=== PATIENT | female | born 1970 | race Caucasian/White ===

== ENCOUNTER 2021-10-11 16:54 | Outpatient (REF) | payer OTHER, SELFPAY ==
[2021-10-13 20:59] LABS: COVID-19 RT-PCR UVMMC Result Positive (Negative)
== END 2021-10-11 16:55 | disposition home or self-care (01) ==
LOC: LBN 16:54
PROVIDERS: PCP Student in an Organized Health Care Education/Training Program; Visit Provider Student in an Organized Health Care Education/Training Program
DX: R09.81 Nasal congestion (principal); Z20.822 Contact with and (suspected) exposure to COVID-19
CPT/HCPCS: U0003

== ENCOUNTER 2021-11-05 09:23 | Outpatient (REF) | payer OTHER, SELFPAY ==
--- NOTE | 2021-11-05 09:15 | PAPFT_PTH ---
PATIENT: Joi Nguyen LOC: [facility] U#:[id number] AGE/SX: 51/F ROOM: RE11/05/[address]: CRYSTAL Campuzano : 1970 BED: DIS: 11/05/2021 SPEC #: [id number] RECD: 11/05/21 12:57 STATUS: SHARON REJohn #: [id number] PATRICIA: 11/05/21 09:[address]: Yissel Burgos DEPT: [facility] Cytology RECD BY: Anh García ENTERED: 11/05/21 12:57 SP TYPE: PAPFT OTHR DR: Lili Garber, Tissues: 1 - CX/ENDOCX FOR PAP SMEARS Procedures: PAP THIN PREP/[facility] Screening HPV DNA PROBE Comments: [id number]
[2021-11-06 15:20] LABS: Chlamydia Result Negative (Negative); GC Result Negative (Negative)
== END 2021-11-05 09:24 | disposition home or self-care (01) ==
LOC: LBN 09:23
PROVIDERS: PCP Student in an Organized Health Care Education/Training Program; Visit Provider Nurse Practitioner Family
DX: Z11.3 Encounter for screening for infections with a predominantly sexual mode of transmission (principal); Z12.4 Encounter for screening for malignant neoplasm of cervix; Z11.51 Encounter for screening for human papillomavirus (HPV)
CPT/HCPCS: 87491; 87591; 88142; 87624

== ENCOUNTER 2021-11-05 17:12 | Outpatient (REF) | payer OTHER, SELFPAY | END 2021-11-05 17:13 | disposition home or self-care (01) | LOC: LBN 17:12 | PROVIDERS: PCP Student in an Organized Health Care Education/Training Program; Visit Provider Nurse Practitioner Family ==

== ENCOUNTER 2021-12-28 01:07 | Outpatient (CLI) | payer OTHER, SELFPAY ==
--- NOTE | 2021-12-28 08:29 | DI.MAMMO_ITS ---
Exam(s) MAMMO SCREENING EXAM: MAMMO SCREENING CLINICAL HISTORY: screening TECHNIQUE: Bilateral full field digital CC and MLO mammographic images were obtained with 3D tomosyn thesis and utilizing computer aided detection (CAD). COMPARISON: Available for comparison. FINDINGS: Masses/Architectural Distortion: None seen. Microcalcifications: No suspicious pleomorphic-type are seen. Skin Thickening/Nipple Retraction: None. IMPRESSION: 1. No significant interval change with no specific features of malignancy noted. 2. Unless there is more urgent need, screening mammography is recommended, as per [employer] guidelines. BI-RADS Category 1 - Negative Breast Density - Category C - Heterogeneously dense Breast density category C or D implies that the patient has dense breast tissue. Dense breast tissue is very common and is not abnormal but dense breast tissue can make it harder to find cancer on a ma mmogram. Also, dense breast tissue may increase their breast cancer risk. This information about the result of the mammogram report was provided to the patient to raise their awareness. Use this report when you speak with the patient about their risks for breast cancer, which includes their family hist ory. At that time, you may recommend for more screening tests (Ultrasound or MRI) as they might be us eful based on their risk. A negative radiographic report should not delay biopsy if a dominant or clinically suspicious mass is present. Up to ten percent of cancers are not identified on mammography. A negative report may reinforce clinical impression. Adenosis and dense breasts may obscure an underlying neoplasm. False positive reports average 6 to 10%. Patient will receive a letter notifying them of these results.
== END 2021-12-28 01:27 ==
PROVIDERS: PCP Student in an Organized Health Care Education/Training Program; Visit Provider Student in an Organized Health Care Education/Training Program
DX: Z12.31 Encounter for screening mammogram for malignant neoplasm of breast (principal)
CPT/HCPCS: 77063; 77067

== ENCOUNTER 2022-02-22 01:30 | Outpatient (CLI) | payer OTHER, SELFPAY ==
[2022-02-22 07:29] LABS: HCT 41.7 % (36.0-46.0); HGB 13.9 g/dL (11.2-15.7); MCH 31.2 pg (27.0-33.0); MCHC 33.3 % (32.0-36.0); MCV 94 fL (80-95); Platelet Count 204 10^3/uL (130-400); RBC 4.45 10^6/uL (3.93-5.22); RDW 12.1 % (11.7-14.6); RDW-SD 41.8 fL; WBC 4.63 10^3/uL (4.4-10.8)
[2022-02-22 09:08] LABS: ALT 32 U/L (14-59); AST 22 U/L (15-37); Albumin 3.8 g/dL (3.4-5.0); Alkaline Phosphatase 53 U/L (46-116); Anion Gap 5.1 mmol/L (3-11); BUN 14 mg/dL (7-18); Bilirubin, Total 0.4 mg/dL (0.2-1.0); CO2 30.9 mmol/L (21.0-32.0); CREATININE 0.9 mg/dL (0.55-1.02); Calcium 8.8 mg/dL (8.5-10.1); Calculated LDL 127 mg/dL (<100); Chloride 104 mmol/L (98-107); Cholesterol 223 mg/dL (<200); Glucose 94 mg/dL (74-106); HDL Cholesterol 88 mg/dL (40-60); Potassium 4.2 mmol/L (3.5-5.1); Sodium 140 mmol/L (136-145); Total Protein 7.1 g/dL (6.4-8.2); Triglyceride 43 mg/dL (<150)
[2022-02-23 09:51] LABS: HIV-1/2 Ag & Ab Screen Negative (Negative)
[2022-02-24 14:53] LABS: Syphilis IgG w/Reflex Nonreactive (Nonreactive)
[2022-02-25 10:06] LABS: Hepatitis B Surface Ag Negative (Negative)
[2022-02-25 10:53] LABS: Hepatitis C Ab w Rflx HCV PCR Negative (Negative)
== END 2022-02-22 01:31 | disposition home or self-care (01) ==
LOC: LBO 01:30
PROVIDERS: Nurse Practitioner Family; PCP Student in an Organized Health Care Education/Training Program; Visit Provider Student in an Organized Health Care Education/Training Program
DX: E86.0 Dehydration (principal); Z86.2 Personal history of diseases of the blood and blood-forming organs and certain disorders involving the immune mechanism; Z86.39 Personal history of other endocrine, nutritional and metabolic disease; Z11.3 Encounter for screening for infections with a predominantly sexual mode of transmission; Z11.4 Encounter for screening for human immunodeficiency virus [HIV]; Z11.59 Encounter for screening for other viral diseases; Z13.220 Encounter for screening for lipoid disorders
CPT/HCPCS: 36415; 80053; 80061; 85027; 86803; 87340; 87389; 84443; 86780

== ENCOUNTER 2023-01-31 00:32 | Outpatient (CLI) | payer OTHER, SELFPAY ==
--- NOTE | 2023-01-31 12:30 | DI.MAMMO_ITS ---
Exam(s) MAMMO SCREENING EXAM: MAMMO SCREENING CLINICAL HISTORY: screening TECHNIQUE: Mammograms were interpreted according to the usual protocol including computer analysis w [employer] CAD system, tomosynthesis and C-view imaging. COMPARISON: 2015 through 2021 FINDINGS: The breasts are composed of scattered fibroglandular densities, Breast Density category B. No suspicious masses or suspicious microcalcifications are seen. No skin thickening or abnormal axillary lymph nodes are seen. There has been no significant change from prior exams. IMPRESSION: BI-RADS Category 1, Negative mammogram Yearly screening mammography is recommended. Breast Density - Category B, scattered fibroglandular densities. A negative radiographic report should not delay biopsy if a dominant or clinically suspicious mass is present. Up to ten percent of cancers are not identified on mammography. A negative report may reinforce clinical impression. Adenosis and dense breasts may obscure an underlying neoplasm. False positive reports average 6 to 10%. Patient will receive a letter notifying them of these results.
== END 2023-01-31 00:52 ==
LOC: DI 00:33
PROVIDERS: PCP Student in an Organized Health Care Education/Training Program; Visit Provider Nurse Practitioner Women's Health
DX: Z12.31 Encounter for screening mammogram for malignant neoplasm of breast (principal)
CPT/HCPCS: 77063; 77067

== ENCOUNTER 2023-11-25 04:35 | Outpatient (CLI) | payer BC, SELFPAY ==
[2023-11-25 08:36] LABS: HCT 42.3 % (36.0-46.0); MCH 30.4 pg (27.0-33.0); MCHC 33.1 % (32.0-36.0); MCV 92 fL (80-95); Platelet Count 235 10^3/uL (130-400); WBC 5.03 10^3/uL (4.4-10.8)
[2023-11-25 09:34] LABS: ALT 25 U/L (14-59); AST 18 U/L (15-37); Albumin 3.5 g/dL (3.4-5.0); Alkaline Phosphatase 51 U/L (46-116); Anion Gap 6.1 mmol/L (3-11); BUN 14 mg/dL (7-18); Bilirubin, Total 0.5 mg/dL (0.2-1.0); CO2 28.9 mmol/L (21.0-32.0); CREATININE 0.9 mg/dL (0.55-1.02); Calculated LDL 105 mg/dL (<100); Chloride 108 mmol/L (98-107); Cholesterol 190 mg/dL (<200); Glucose 95 mg/dL (74-106); HDL Cholesterol 76 mg/dL (40-60); Potassium 4.4 mmol/L (3.5-5.1); Sodium 143 mmol/L (136-145); TSH (W/Ref FT4) 1.23 uIU/mL (0.36-3.74); Total Protein 7.2 g/dL (6.4-8.2); Triglyceride 46 mg/dL (<150)
[2023-11-25 10:33] LABS: Vitamin D 25 Total 46.5 ng/mL (30-100)
== END 2023-11-25 04:36 | disposition home or self-care (01) ==
LOC: LBO 04:36
PROVIDERS: PCP Student in an Organized Health Care Education/Training Program; Referring Provider Student in an Organized Health Care Education/Training Program; Visit Provider Student in an Organized Health Care Education/Training Program
DX: Z86.39 Personal history of other endocrine, nutritional and metabolic disease (principal); Z91.89 Other specified personal risk factors, not elsewhere classified; K58.9 Irritable bowel syndrome, unspecified; Z80.0 Family history of malignant neoplasm of digestive organs
CPT/HCPCS: 36415; 80053; 80061; 82306; 85027; 83735; 84443

== ENCOUNTER → 2024-03-04 00:01 | Outpatient (CLI) | payer BC, SELFPAY ==
--- NOTE | 2024-03-04 08:58 | DI.DEXA_ITS ---
Exam(s) XR DEXA BONE DENSITY W/WO VICKY EXAM: XR DEXA BONE DENSITY W/WO VICKY CLINICAL HISTORY: Z78.0 MENOPAUSAL Z82.62 FAM HX OSTEOPOROSIS L98.9 DISORDER TECHNIQUE: COMPARISON: No exams were available for comparison FINDINGS: Lateral Spine Image: Unremarkable. No compression deformities identified. Left hip: Total T-Score: -1.5 Total Z-Score: -1.0 T- and Z-scores: Findings are consistent with osteopenia. There is no evidence of osteoporosis. Lumbar Spine: Total T-Score: -2.4 Total Z-Score: -1.5 T- and Z-scores: Findings are consistent with osteopenia. There is osteoporosis in the L3 and L4 amrik tebral bodies with T-scores of -2.5 at each level. IMPRESSION: Osteoporosis is seen in the L3 and L4 vertebral bodies.
--- NOTE | 2024-03-04 15:24 | DI.MAMMO_ITS ---
Exam(s) MAMMO SCREENING EXAM: MAMMO SCREENING CLINICAL HISTORY: screening Z12.39. TECHNIQUE: Bilateral full field digital CC and MLO mammographic images were obtained with 3D tomosyn thesis and utilizing computer aided detection (CAD). COMPARISON: Prior mammograms were reviewed. FINDINGS: There has been no significant change in the appearance and distribution of the fibroglandular tissue. Small benign-appearing nodule in the right breast is unchanged and has appearance of benign intramamm tristen lymph node. There are no new spiculated masses nor malignant appearing microcalcification groups. There is no significant architectural distortion nor skin thickening-retraction. IMPRESSION: No radiographic evidence of malignancy. Stable benign-appearing findings BI-RADS Category 2 - Benign Findings Breast Density - Category B - Scattered areas of fibroglandular density Breast density Category C or D implies that the patient has dense breast tissue. Dense breast tissue can make it harder to find cancer on a mammogram. Dense breast tissue is also associated with an incr eased risk of breast cancer. This information about the result of the mammogram report was provided to the patient to raise their awareness. Use this report when you speak with the patient about their risks for breast cancer, which includes their family history. At that time, you may recommend additional screening tests (Ultrasoun d or MRI) as these tests may add significant information. A negative radiographic report should not delay biopsy if a dominant or clinically suspicious mass is present. Up to ten percent of cancers are not identified on mammography. A negative report may reinforce clinical impression. Adenosis and dense breasts may obscure an underlying neoplasm. False positive reports average 6 to 10%. Patient will receive a letter notifying them of these results.
== END ==
PROVIDERS: PCP Student in an Organized Health Care Education/Training Program; Visit Provider Student in an Organized Health Care Education/Training Program
DX: Z12.31 Encounter for screening mammogram for malignant neoplasm of breast (principal); Z13.820 Encounter for screening for osteoporosis; Z78.0 Asymptomatic menopausal state; M81.0 Age-related osteoporosis without current pathological fracture
CPT/HCPCS: 77063; 77067; 77080

== ENCOUNTER 2024-04-16 09:06 | Day surgery (SDC) | payer BC, SELFPAY ==
--- NOTE | 2024-04-15 21:23 | W.COLOREPORT ---
Date of service: 04/16/24 Time of Service: 10:29 Colonoscopy Report Date of procedure: 04/16/24 Pre-op diagnosis general: IBS-D/2nd famlly member CRC/polyps Post-op diagnosis procedure note: other (Colon polyp) Surgeon: Breanne Castanon Anesthesia Type: General:No Airway Estimated blood loss (mL): 1 Pathology: other Complications: None Disposition: same day Prep: Miralax/Dulcolax Retraction Time: 15 Procedure Description: After informed consent was obtained, explaining risks of the procedure, including but not limits to: bleeding, infections, complications of anesthesia, perforations (which may require antibiotics and /or surgery and stay in the hospital), and abdominal pain/cramping. The patient was taken to the procedure room and placed in a left decubitous position. Monitors were applied and a time out was done. The patients name, date of , procedure, allergies to medications and metal in their body was reviewed. The patient was then sedated. Once sedated and comfortable a rectal exam was done. External exam was normal. Internal exam revealed a normal sphincter tone and no palpable masses. The previously lubricated Olympus scope was then introduced (see RN notes for scope number) and retrofelexed. Grade 2 x 1 column, internal hemorrhoids were identified. The scope was then advanced to the cecum without difficulty. The TI and appendiceal orifice were identified. The scope was then slowly retracted over 15 minutes back into the rectum. Polyps: A flat, 1cm polyp was found at 80cm. This was removed with a cold biting forceps. All of the specimen was retrieved. This will be sent to pathology. There is no bleeding noted from the polypectomy site. . Diverticula: None. The mucosa is pink and healthy w/ a normal vascular pattern. The scope was removed, and the patient was woken up and taken back to Same day surgery in stable condition. The patient tolerated the procedure well and there were no immediate complications. Follow up: The patient should follow up in 3-5 years, path pending, unless they develop changes in bowel habits or other new gastrointestinal complaints. [place] Bowel Prep [place] Bowel Prep Right Colon: 3 Left Colon: 3 Transverse Colon: 3 Total Score: 9
--- NOTE | 2024-04-15 21:24 | PDOC.DSDIS_ITS ---
Date of service: 04/16/24 Time of Service: 10:32 Discharge Plan Disposition Patient Disposition: Home Discharge Details Reason For Visit: colon cancer screening Attending Provider: Breanne Castanon Primary Care Provider: Lili Garber Home Meds and New Rx's Prescriptions: Continued multivitamin Tablet 1 tab PO DAILY Qty: 90 1RF escitalopram oxalate [Lexapro] 10 mg tablet 10 mg PO DAILY Qty: 90 3RF sumatriptan succinate 25 mg tablet See Rx Instructions PO .COMPLEX Qty: 20 1RF Rx Instructions: take 1 tab at onset of headache; if no relief may repeat 1 tab after at least 2 hrs; max = 4 tabs/24 hr PO norethindrone (contraceptive) [Deblitane] 0.35 mg tablet See Rx Instructions .ROUTE .COMPLEX Qty: 84 0RF Dose Instruction: TAKE ONE TABLET BY MOUTH EVERY DAY Rx Instructions: TAKE ONE TABLET BY MOUTH EVERY DAY Discontinued bisacodyl 5 mg tablet,delayed release (DR/EC) 5 mg PO ONCE Qty: 4 0RF Rx Instructions: Per Colonoscopy bowel prep instructions polyethylene glycol 3350 17 gram/dose powder 238 g PO ONCE Qty: 238 0RF Rx Instructions: For Colonoscopy bowel prep, as directed by office Discharge Instructions Additional Instructions: DSU Colonoscopy Post- Op Instructions Instructions for Everyone who is given Anesthesia: For your safety, please do the following for the next twenty-four (24) hours: *Do Not operate a motor vehicle (car, truck, motorcycle, etc.) *Do Not drink alcoholic beverages or use any recreational drugs for the first 24 hours or while taking pain medications. The medications in your body may have a reaction that can be dangerous. *Do Not make any important decisions or sign any important papers. Findings: X 1 colon polyp. Otherwise normal Follow up: My office will send you a letter in 2 to 3 weeks time with the results of the pathology and when we want you to repeat the colonoscopy, most likely 3 to 5 years time. 1. No lifting over 20 pounds or strenuous activity for the first 24 hours after your procedure. After 24 hours there are no restrictions on your activity but you may feel fatigued for a few days. 2. After you arrive home you may have a light meal and return to your normal diet as you can tolerate it without feeling sick to your stomach. 3. You may have a bloated, gaseous feeling in your belly (abdomen) after a colonoscopy. Passing gas and belching will help. Walking or lying down on your left side with your knees flexed may relieve the discomfort. Call the office at [phone] (Office) or [phone] (Hospital) right away if you notice any of the following: a.Vomiting of blood or ?coffee ground stools?. b.Rectal bleeding 1Tbsp, blood clots or continuous bleeding. c.Severe belly (abdominal) pain. d.A hard distended belly (abdomen) and an inability to pass gas. 4. Please don?t expect to have a normal BM (bowel movement) for 2-3 days after your procedure. 5. If there are questions regarding the findings of your procedure, please contact your doctor 6. If you are unable to contact your doctor with a problem, contact the hospital at [phone]. 7. Continue all your regular medications unless directed otherwise. I understand the above instructions and have no questions. Signature of Patient or Adult Escort Name of Responsible Adult Escort Signature of Nurse Date/Time Stand Alone Forms: Anesthesia Discharge Inst., Olga Swanson (DSU) Activity:: see above Diet:: see above Discharge Orders Discharge Orders: Discharge Order (Routine); Ordered 04/16/24 Ordered By: Breanne Castanon DS: Diagnosis Discharge Diagnosis (1) Anxiety associated with depression: Status: Acute (2) Hx of Roland thyroiditis: Status: Acute (3) At risk for osteoporosis: Status: Acute (4) Abnormal weight gain: Status: Acute (5) IBS (irritable bowel syndrome): Status: Chronic (6) Persistent headaches: Status: Acute (7) Family hx of colon cancer: Asessment and Plan: The patient is seen and examined after their colonoscopy.? The patient has been able to pass gas.? They are not having abdominal pain.? They have been able to tolerate liquids and a snack.? They do not have any nausea or vomiting.? They are not having any chest pain or shortness of breath.??? They are not having any rectal bleeding. Their vital signs have been stable-see nursing notes. We discussed findings during their colonoscopy, and any biopsies that were done/polyps that were removed. The patient will be sent a letter with any biopsy results, and when to repeat the colonoscopy.-see discharge instructions. Patient was given explicit instructions to follow-up regarding colonoscopy-refer to discharge instructions.? We reviewed resumption of medications. Patient verbalized understanding and discharged in stable and satisfactory condition- See nursing notes. (8) Colon polyp: Status: Acute
--- NOTE | 2024-04-16 05:58 | W.ANESPRE ---
General Info Date of Service Date Performed: 04/16/24 Height: 5 ft 5.5 in Weight: 58.967 kg Body Mass Index (BMI): 21.3 Surgical Procedure: Operation Date: 04/16/24 09:50 Proposed Procedure Side Surgeon samuel Castanon, DO Meds Allergies and Home Medications Allergies Allergy/AdvReac Type Severity Reaction Status Date / Time ciprofloxacin (From Cipro) Allergy Severe facial Verified 04/16/24 09:14 swelling seasonal allergies Allergy Intermediate runny Uncoded 04/16/24 09:14 nose, itchy eyes, sneezing Home Medication ?Medication ?Instructions ?Recorded multivitamin 1 tab PO DAILY #90 tabs 12/03/21 escitalopram oxalate 10 mg tablet 10 mg PO DAILY #90 tabs 11/06/23 (Lexapro) sumatriptan succinate 25 mg tablet See Rx Instructions PO .COMPLEX 11/06/23 #20 tabs norethindrone (contraceptive) 0.35 See Rx Instructions .Route 03/08/24 mg tablet (Deblitane) .COMPLEX #84 tabs Current Visit Medications: Current Medications Generic Name Dose Route Start Last Admin Trade Name Freq PRN Reason Stop Dose Admin Hyoscyamine Sulfate 0.125 mg 04/16/24 09:18 Hyoscyamine 0.125 Mg Sl/Oral/Chew SL 05/16/24 09:17 DIRECTED PRN Ringer's Solution 1,000 mls @ 80 mls/hr 04/16/24 06:00 IV 04/16/24 23:59 INFUSION DAVID IV Miscellaneous Supplies 1 each 04/16/24 06:00 Iv Access IV 04/16/24 23:59 DIRECTED DAVID Ondansetron HCl 4 mg 04/16/24 09:18 Ondansetron 4 Mg/2 Ml Vial IVP 05/16/24 09:17 Q4H PRN PRN Nausea / Vomiting Sodium Chloride 0 ml 04/16/24 06:00 Normal Saline Flush 10 Ml Syr IV 04/16/24 23:59 PRN PRN Sodium Chloride 0 ml 04/16/24 06:00 Normal Saline 10 Ml Vial IJ 04/16/24 23:59 DIRECTED PRN Sterile Water 0 ml 04/16/24 06:00 Water,Injection,Sterile 10 Ml Vial IJ 04/16/24 23:59 DIRECTED PRN PFSH Active Problems Active Problems: Problem Status Onset Code Osteoporosis Chronic M81.0 Skin lesions, generalized Acute L98.9 Left elbow tendinitis Acute M77.8 Lesion of left external ear Acute H61.92 Abnormal weight gain Acute R63.5 Anxiety associated with depression Acute F41.8 Ocular migraine Acute G43.109 Migraine with aura Acute G43.109 Persistent headaches Acute R51.9 Hx of Roland thyroiditis Acute Z86.39 IBS (irritable bowel syndrome) Chronic Unknown K58.9 At risk for osteoporosis Acute Z91.89 Preventative health care Chronic Z00.00 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 Family hx of colon cancer Grandparents, colon & stomach cancers History of concussion Gymnastics, Swimming COVID (+) Oct 11 swab .. @ ED? Surgical History Surgical History Hx of local excision of skin lesion Left shldr, NEG. Uses sunscreen, sulfa, retinol. Tobacco Smoking/Tobacco Use Status: Former Tobacco Use Passive smoking exposure: No Second hand exposure: No Alcohol Alcohol Intake: current Alcohol intake frequency: a few times a week Substance Use Substance use: Never Substance use type: does not use Prental History History 2 Para 2 Hx # Term Pregnancies Multiple births Hx # Pregnancies Ectopic pregnancies AB induced Hx Number of Living Children AB spontaneous Vital Signs and Lab Results Vital Signs Comment Vital Signs Comment:: Temp Pulse Resp BP Pulse Ox 36.4 C L 62 16 132/78 98 04/16/24 09:18 04/16/24 09:18 04/16/24 09:18 04/16/24 09:18 04/16/24 09:18 Lab Results Blood Type / Crossmatch: No Data to Display Complete Blood Count: No Data to Display Complete Metabolic Panel: No Data to Display Liver Function Panel: No Data to Display Coagulation Panel: No Data to Display Cardiac Panel: No Data to Display Arterial Blood Gas: No Data to Display Venous Blood Gas: No Data to Display Pancreas Panel: No Data to Display Thyroid Panel: No Data to Display Infectious Disease: No Data to Display Blood Cultures: No Data to Display Toxicology Panel: No Data to Display Panel: No Data to Display Anesthesia Assessment and Plan Anesthesia History Personal History: No History of Anesthesia Complications Family History: No Family History of Anesthesia Complications Exercise Tolerance Exercise Tolerance: Metabolic Equivalents>4 Pertinent Negatives Pertinent Negatives: No Symptoms of GERD, No Major Cardiovascular Symptoms or Complaints, No Major Pulmonary Symptoms or Complaints and No History of CVA/TIA Cardiac & Pulmonary Exam Cardiac Exam: Normal S1/S2 Heart Sounds Pulmonary Exam: Clear Bilateral Breath Sounds Implantable Cardiac Device Does patient have a Pacemaker or an ICD?: No Airway Exam Known Difficult Airway: No Mallampati Class: 1 Mouth Opening: Normal (> 3cm) Thyromental Distance: Greater than 3 cm Neck Range of Motion: Full ROM Neck Circumference: Normal Teeth Condition: Normal Dentition (upper incisors bonded) ASA Classification ASA Score: ASA 2 Emergency Case?: No NPO Status NPO Status: NPO Clears >2 hours, Solids >8 hours Status Status: Not Relevant due to Medical History Anesthesia Plan Resuscitation Status: Full Code Anesthesia Technique: General Anesthesia Airway Planned: Natural Airway Monitors Used: Standard Monitors Preoperative Comments:: 53 y/o female with history of seasonal allergies, migraines, osteoporosis and IBS presents for colonoscopy screening. Last Colonoscopy was 3 years ago in the state of [place], at which time she states a polyp was excised. Pathology unknown. She has a family history of colon cancer in her maternal grandfather
[2024-04-16 05:59] VITALS: BMI 21.3
[2024-04-16 09:18] VITALS: BP 132/78; PULSE 62; RESP 16; TEMP 36.4; O2SAT 98
[2024-04-16] MEDS: Lactated Ringers 1,000 ML 80 ML IV (09:26)
--- NOTE | 2024-04-16 10:02 | BOWEL_PTH ---
PATIENT: Joi Nguyen LOC: [facility] U#:[id number] AGE/SX: 53/F ROOM: RE04/16/[address]: Breanne Castanon : 1970 BED: DIS: 04/16/2024 SPEC #: [id number] RECD: 04/16/24 12:32 STATUS: SHARON REQ #: [id number] PATRICIA: 04/16/24 10:[address]: Breanne Castanon DEPT: Surgical Specimen RECD BY: Anh García ENTERED: 04/16/24 12:32 SP TYPE: Bowel OTHR DR: Lili Garber DO Tissues: 1 - BIOPSY BOWEL Procedures: GROSS AND MICRO LEVEL 4 Comments: [id number]
[2024-04-16 10:20] VITALS: BP 142/67; PULSE 63; RESP 16; TEMP 36.3; O2SAT 98
--- NOTE | 2024-04-16 10:45 | W.ANESPOSTOP ---
Postoperative Evaluation Date, Time and Location Date Performed: 04/16/24 Time Performed: 10:46 Patient Location: Day Surgery Unit Vital Signs Most Recent Imported Vital Signs: Most Recent Vital Signs Temp Pulse Resp BP Pulse Ox 36.3 C L 63 16 142/67 H 98 04/16/24 10:20 04/16/24 10:20 04/16/24 10:20 04/16/24 10:20 04/16/24 10:20 Pain Score Most Recent Pain Score: Most Recent Pain Score Pain Level 0 04/16/24 10:20 Assessment Mental Status: Awake (Alert & Oriented to Patient Baseline) Airway and Respiratory Function: Patent airway with normal (patient baseline) respiratory exam Cardiovascular Function: Hemodynamically Stable Hydration Status: Adequately Hydrated Nausea & Vomiting: No Nausea or Vomiting Pain: Pt. Denies Any Pain Peripheral Nerve Block: Patient did not receive a nerve block
[2024-04-16 10:50] VITALS: BP 104/80; PULSE 79; RESP 16; TEMP 37; O2SAT 100
== END 2024-04-16 11:25 | disposition home or self-care (01) ==
LOC: SUR 09:09
PROVIDERS: PCP Student in an Organized Health Care Education/Training Program; Visit Provider Surgery
PROC: 0DJD8ZZ Inspection of Lower Intestinal Tract, Via Natural or Artificial Opening Endoscopic (ICD-10-PCS; CPT 45378; principal; 2024-04-16 09:45)
DX: Z80.0 Family history of malignant neoplasm of digestive organs; D12.4 Benign neoplasm of descending colon; Z12.11 Encounter for screening for malignant neoplasm of colon; K64.8 Other hemorrhoids
CPT/HCPCS: 45380; 88305; J2001; J2405; J2704

== ENCOUNTER 2024-06-07 15:53 | Outpatient (REF) | payer BC, SELFPAY ==
[2024-06-09 13:12] LABS: Chlamydia Result Negative (Negative); GC Result Negative (Negative)
== END 2024-06-07 15:54 | disposition home or self-care (01) ==
LOC: LBN 15:53
PROVIDERS: PCP Student in an Organized Health Care Education/Training Program; Visit Provider Nurse Practitioner Women's Health
DX: Z11.3 Encounter for screening for infections with a predominantly sexual mode of transmission (principal); N95.2 Postmenopausal atrophic vaginitis
CPT/HCPCS: 87491; 87591

== ENCOUNTER 2024-08-11 19:32 | Outpatient (REF) | payer BC, SELFPAY ==
[2024-08-13 12:39] LABS: Chlamydia Result Negative (Negative); GC Result Negative (Negative)
== END 2024-08-11 19:33 | disposition home or self-care (01) ==
LOC: LBN 19:32
PROVIDERS: PCP Student in an Organized Health Care Education/Training Program; Visit Provider Advanced Practice Midwife
DX: N76.1 Subacute and chronic vaginitis (principal); Z11.3 Encounter for screening for infections with a predominantly sexual mode of transmission
CPT/HCPCS: 87491; 87591; 87480; 87510; 87660

== ENCOUNTER 2024-12-07 01:29 | Outpatient (CLI) | payer BC, SELFPAY ==
[2024-12-07 08:03] LABS: Glucose 98 mg/dL (74-106)
[2024-12-07 08:10] LABS: Calculated LDL 97 mg/dL (<100); Cholesterol 194 mg/dL (<200); HDL Cholesterol 88 mg/dL (>or=50); Triglyceride 49 mg/dL (<150)
[2024-12-07 08:28] LABS: Vitamin D 25 Total 53 ng/mL (30-100)
[2024-12-08 11:39] LABS: Measles IgG Antibody Positive (See Note)
== END 2024-12-07 01:30 | disposition home or self-care (01) ==
LOC: LBO 01:29
PROVIDERS: Student in an Organized Health Care Education/Training Program; PCP Nurse Practitioner Family; Referring Provider Nurse Practitioner Family; Visit Provider Nurse Practitioner Family
DX: Z00.00 Encounter for general adult medical examination without abnormal findings (principal); K90.9 Intestinal malabsorption, unspecified
CPT/HCPCS: 36415; 80061; 82306; 82947; 86765

== ENCOUNTER 2025-03-08 02:06 | Outpatient (CLI) | payer BC, SELFPAY ==
--- NOTE | 2025-03-08 07:45 | DI.DEXA_ITS ---
Exam(s) XR DEXA BONE DENSITY W/WO VICKY EXAM: XR DEXA BONE DENSITY W/WO VICKY CLINICAL HISTORY: MONITOR ALENDRONATE,OSTEOPOROSIS,M81.0 TECHNIQUE: Ascletis C densitometer analysis of left hip, lumbar spine and left forearm. Lateral survey image of the thoracic and lumbar spine. COMPARISON: CR XR DEXA BONE DENSITY W/WO VICKY from 03/04/2024 FINDINGS: Lateral view of the thoracic and lumbar spine shows no evidence of compression fractures. Bone mineral density measurements of the lumbar spine correspond to a total T- score of -1.9, in the osteopenic range. This represents a 6.4 percent increase compared with the prior exam. Bone mineral density measurements of the left hip correspond to a total T-score of -1.2. This represents a 4.8 percent increase compared with the prior exam. The femoral neck T-score is -2.1, in the osteopenic range. Theleft forearm bone mineral density measurements correspond to a T-score of the distal 3rd of -0.6, in the normal range, not significantly changed from the prior exam. IMPRESSION: Osteopenia of the lumbar spine and left hip. Normal bone mineral density of the forearm.
== END 2025-03-08 02:26 ==
LOC: DI 02:06
PROVIDERS: PCP Nurse Practitioner Family; Visit Provider Nurse Practitioner Family
DX: M81.0 Age-related osteoporosis without current pathological fracture (principal)
CPT/HCPCS: 77080

== ENCOUNTER 2025-03-18 09:29 | Outpatient (CLI) | payer BC, SELFPAY ==
--- NOTE | 2025-03-18 09:30 | DI.RAD_ITS ---
Exam(s) XR ANKLE RT COMPLETE XR FOOT RT COMPLETE EXAM: XR FOOT RT COMPLETE and XR ankle RT complete CLINICAL HISTORY: rt foot pain, M79.671. TECHNIQUE: 2D digital imaging was performed of the right ankle and foot. Six images were obtained. AP, oblique and lateral views were obtained. COMPARISON: There are no priors for comparison. FINDINGS: BONES: There is a nondisplaced fracture through the lateral malleolus below the level of the talar dome. There is a benign well-circumscribed cyst seen in the distal fibula. No bony destructive lesion is seen. There is a small plantar calcaneal spur. JOINTS: No dislocation present. The joint spaces are well maintained. SOFT TISSUE: There is soft tissue swelling about the ankle laterally. IMPRESSION: 1. Nondisplaced fracture through the lateral malleolus. 2. No acute fracture or dislocation in the right foot. DATA REPOSITORY: RADIATION DOSE DELIVERED:
== END 2025-03-18 09:49 ==
LOC: DI 09:29
PROVIDERS: PCP Nurse Practitioner Family; Visit Provider Nurse Practitioner Family
DX: M79.671 Pain in right foot (principal); S82.64XA Nondisplaced fracture of lateral malleolus of right fibula, initial encounter for closed fracture; X58.XXXA Exposure to other specified factors, initial encounter
CPT/HCPCS: 73610; 73630

== ENCOUNTER 2025-03-21 01:28 | Outpatient (CLI) | payer BC, SELFPAY ==
--- NOTE | 2025-03-21 07:00 | DI.MAMMO_ITS ---
Exam(s) MAMMO SCREENING EXAM: MAMMO SCREENING CLINICAL HISTORY: screening,z12.39 TECHNIQUE: Mammograms were interpreted according to the usual protocol including computer analysis with CAD system, tomosynthesis and C-view imaging. COMPARISON: 2015 through 2023 FINDINGS: The breasts are composed of scattered fibroglandular densities, Breast Density category B. No suspicious masses or suspicious microcalcifications are seen. No skin thickening or abnormal axillary lymph nodes are seen. There has been no significant change from prior exams. IMPRESSION: BI-RADS Category 1, Negative mammogram Yearly screening mammography is recommended. Breast Density - Category B - There are scattered areas of fibroglandular density. Breast density Category C or D implies that the patient has dense breast tissue. Dense breast tissue can make it harder to find cancer on a mammogram. Dense breast tissue is also associated with an increased risk of breast cancer. This information about the result of the mammogram report was provided to the patient to raise their awareness. Use this report when you speak with the patient about their risks for breast cancer, which includes their family history. At that time, you may recommend additional screening tests (Ultrasound or MRI) as these tests may add significant information. A negative radiographic report should not delay biopsy if a dominant or clinically suspicious mass is present. Up to ten percent of cancers are not identified on mammography. A negative report may reinforce clinical impression. Adenosis and dense breasts may obscure an underlying neoplasm. False positive reports average 6 to 10%. Patient will receive a letter notifying them of these results.
== END 2025-03-21 01:48 ==
LOC: DI 01:29
PROVIDERS: PCP Nurse Practitioner Family; Visit Provider Nurse Practitioner Family
DX: Z12.31 Encounter for screening mammogram for malignant neoplasm of breast (principal); R92.323 Mammographic fibroglandular density, bilateral breasts
CPT/HCPCS: 77063; 77067

== ENCOUNTER 2025-04-22 06:07 | Day surgery (SDC) | payer BC, SELFPAY ==
[2025-04-22 06:20] VITALS: BP 112/74; PULSE 72; RESP 16; TEMP 36.5; O2SAT 98
[2025-04-22] MEDS: Lactated Ringers 1,000 ML 80 ML IV (06:37)
--- NOTE | 2025-04-22 06:57 | W.ANESPRE ---
General Info Date of Service Date Performed: 04/22/25 Height: 5 ft 6 in Weight: 59.4 kg Body Mass Index (BMI): 21.1 Surgical Procedure: Operation Date: 04/22/25 07:35 Proposed Procedure Side Surgeon samuel Rose MD Meds Allergies and Home Medications Allergies Allergy/AdvReac Type Severity Reaction Status Date / Time ciprofloxacin (From Cipro) Allergy Severe facial Verified 04/22/25 06:27 swelling Home Medication ?Medication ?Instructions ?Recorded multivitamin 1 tab PO DAILY #90 tabs 12/03/21 sumatriptan succinate 25 mg tablet See Rx Instructions PO .COMPLEX 11/06/23 #20 tabs alendronate 70 mg tablet 70 mg PO QWEEK #50 tabs 04/27/24 escitalopram oxalate 10 mg tablet 10 mg PO DAILY #90 tabs 11/09/24 (Lexapro) estradiol 0.01% (0.1 mg/gram) 1 g vaginal DAILY #42.5 grams 02/07/25 vaginal cream norethindrone (contraceptive) 0.35 See Rx Instructions .Route 02/07/25 mg tablet (Deblitane) .COMPLEX #84 tabs bisacodyl 5 mg tablet,delayed 5 mg PO ONCE #4 tabs 03/24/25 release (Dulcolax (bisacodyl)) polyethylene glycol 3350 17 17 g PO ONCE #238 grams 03/24/25 gram/dose oral powder Current Visit Medications: Current Medications Generic Name Dose Route Start Last Admin Trade Name Freq PRN Reason Stop Dose Admin Ringer's Solution 1,000 mls @ 80 mls/hr 04/22/25 06:00 04/22/25 06:37 IV 04/22/25 23:59 80 mls/hr INFUSION DAVID Administration IV Miscellaneous Supplies 1 each 04/22/25 06:00 Iv Access IV 04/22/25 23:59 DIRECTED DAVID Sodium Biphosphate/Sodium Phosphate 133 ml 04/22/25 06:00 Na Phosphate Enema-Adult 133 Ml Btl IA 04/22/25 23:59 DIRECTED DAVID Sodium Chloride 0 ml 04/22/25 06:00 Normal Saline Flush 10 Ml Syr IV 04/22/25 23:59 PRN PRN Sodium Chloride 0 ml 04/22/25 06:00 Normal Saline 10 Ml Vial IJ 04/22/25 23:59 DIRECTED PRN Sterile Water 0 ml 04/22/25 06:00 Water,Injection,Sterile 10 Ml Vial IJ 04/22/25 23:59 DIRECTED PRN PFSH Active Problems Active Problems: Problem Status Onset Code Fracture of malleolus of right ankle Acute S82.891A Family history of Roland thyroiditis Acute Z83.49 Foot pain, right Acute M79.671 High ankle sprain of right lower extremity Acute S93.491A Seasonal allergies Acute J30.2 Chronic vaginitis Acute N76.1 Thumb injury Acute S69.90XA Vaginal atrophy Acute N95.2 Dysplastic colon polyp Acute K63.5 Osteoporosis Chronic M81.0 Skin lesions, generalized Acute L98.9 Left elbow tendinitis Acute M77.8 Lesion of left external ear Acute H61.92 Anxiety associated with depression Acute F41.8 Ocular migraine Acute G43.109 Migraine with aura Acute G43.109 Persistent headaches Acute R51.9 IBS (irritable bowel syndrome) Chronic Unknown K58.9 Preventative health care Chronic Z00.00 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 At risk for osteoporosis Min smkg; low weight (117lbs); mild steroid use. Hx wt loss w/ anxiety. Osteopenia ([place]). Osteoporosis (grandmo) Contraception Sessile serrated polyp of colon (~03/2024) Encounter for immunization Hx of renal calculi @ 32yo, spiculated. 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 Family hx of colon cancer Grandparents, colon & stomach cancers History of concussion Gymnastics, Swimming COVID (+) Oct 11 swab .. @ ED? Surgical History Surgical History History of colonoscopy (~03/2024) Hx of local excision of skin lesion Left shldr, NEG. Uses sunscreen, sulfa, retinol. Tobacco Smoking/Tobacco Use Status: Former Tobacco Use Passive smoking exposure: No Second hand exposure: No Alcohol Alcohol Intake: current Alcohol intake frequency: a few times a week Substance Use Substance use: Never Substance use type: does not use Prental History History 2 Para 2 Hx # Term Pregnancies Multiple births Hx # Pregnancies Ectopic pregnancies AB induced Hx Number of Living Children AB spontaneous Vital Signs and Lab Results Vital Signs Most Recent Vital Signs in EMR: Most Recent Vital Signs Temp Pulse Resp BP Pulse Ox 36.5 C 72 16 112/74 98 04/22/25 06:20 04/22/25 06:20 04/22/25 06:20 04/22/25 06:20 04/22/25 06:20 Point of Care Results Point of Care Results: POC- Test(urine) Negative 04/22/25 06:48 Anesthesia Assessment and Plan Anesthesia History Personal History: No History of Anesthesia Complications Family History: No Family History of Anesthesia Complications Exercise Tolerance Exercise Tolerance: Metabolic Equivalents>4 Pertinent Negatives Pertinent Negatives: No Symptoms of GERD Cardiac & Pulmonary Exam Cardiac Exam: Normal S1/S2 Heart Sounds Pulmonary Exam: Clear Bilateral Breath Sounds Implantable Cardiac Device Does patient have a Pacemaker or an ICD?: No Airway Exam Known Difficult Airway: No Mallampati Class: 1 Mouth Opening: Normal (> 3cm) Thyromental Distance: Greater than 3 cm Neck Range of Motion: Full ROM Neck Circumference: Normal Teeth Condition: Normal Dentition (upper incisors bonded) ASA Classification ASA Score: ASA 2 Emergency Case?: No NPO Status NPO Status: NPO Clears >2 hours, Solids >8 hours Status Status: Not Relevant due to Medical History Anesthesia Plan Resuscitation Status: Full Code Anesthesia Technique: General Anesthesia Airway Planned: Natural Airway Monitors Used: Standard Monitors
[2025-04-22 06:58] VITALS: BMI 21.1
--- NOTE | 2025-04-22 08:31 | W.ANESPOSTOP ---
Postoperative Evaluation Date, Time and Location Date Performed: 04/22/25 Time Performed: 08:30 Patient Location: Day Surgery Unit Vital Signs Most Recent Imported Vital Signs: Most Recent Vital Signs Temp Pulse Resp BP Pulse Ox 36.5 C 72 16 112/74 98 04/22/25 06:20 04/22/25 06:20 04/22/25 06:20 04/22/25 06:20 04/22/25 06:20 Most Recent Manually Entered Vital Signs: Adult Blood Pressure: 104/63 Heart Rate: 72 Respirations: 12 Oxygen Saturation (%): 98 Temperature (C): 36.7 C Pain Score (0-10 Scale): 0 Pain Score Most Recent Pain Score: Most Recent Pain Score Pain Level 0 04/22/25 06:20 Assessment Mental Status: Awake (Alert & Oriented to Patient Baseline) Airway and Respiratory Function: Patent airway with normal (patient baseline) respiratory exam Cardiovascular Function: Hemodynamically Stable Hydration Status: Adequately Hydrated Nausea & Vomiting: No Nausea or Vomiting Pain: Pt. Denies Any Pain Peripheral Nerve Block: Patient did not receive a nerve block
[2025-04-22 08:32] VITALS: BP 104/63; PULSE 66; RESP 16; TEMP 36.7; O2SAT 98
--- NOTE | 2025-04-22 08:34 | PDOC.DSDIS_ITS ---
Date of service: 04/22/25 Discharge Plan Disposition Patient Disposition: Home Discharge Details Attending Provider: Vinny Otero Primary Care Provider: Oneyda Ignacio Home Meds and New Rx's Prescriptions: Continued multivitamin Tablet 1 tab PO DAILY Qty: 90 1RF norethindrone (contraceptive) [Deblitane] 0.35 mg tablet See Rx Instructions .ROUTE .COMPLEX Qty: 84 3RF Dose Instruction: TAKE ONE TABLET BY MOUTH EVERY DAY Rx Instructions: TAKE ONE TABLET BY MOUTH EVERY DAY estradiol 0.01 % (0.1 mg/gram) cream 1 g vaginal DAILY Qty: 42.5 2RF Rx Instructions: for 14 days, then decrease to 1-2 times/week sumatriptan succinate 25 mg tablet See Rx Instructions PO .COMPLEX Qty: 20 1RF Rx Instructions: take 1 tab at onset of headache; if no relief may repeat 1 tab after at least 2 hrs; max = 4 tabs/24 hr PO escitalopram oxalate [Lexapro] 10 mg tablet 10 mg PO DAILY Qty: 90 3RF alendronate 70 mg tablet 70 mg PO QWEEK Qty: 50 3RF Rx Instructions: Trial weekly Alendronate [may ask pharmacy about liquid solution avblty/cost] Discontinued bisacodyl [Dulcolax (bisacodyl)] 5 mg tablet,delayed release (DR/EC) 5 mg PO ONCE Qty: 4 0RF Rx Instructions: Take per colonoscopy instructions provided by ordering providers office polyethylene glycol 3350 17 gram/dose powder 17 g PO ONCE Qty: 238 0RF Rx Instructions: Take per colonoscopy instructions provided by ordering providers office Discharge Instructions Stand Alone Forms: Anesthesia Discharge Inst., Colonoscopy Post Instructions, Olga Swanson (DSU) Activity:: Activity as Tolerated Diet:: As Tolerated Discharge Orders Discharge Orders: Discharge Order (Routine); Ordered 04/22/25 Ordered By: Bhavya Rose DS: Diagnosis Discharge Diagnosis (1) Encounter for colonoscopy due to history of colonic polyp: Status: Acute Asessment and Plan: Normal colonoscopy today. No evidence of regrowth of the previous polyp you had, and no evidence of new polyp. I recommend a repeat colonoscopy be completed in 3 years to recheck your colon for polyp growth. I did not see any sightseeing fi ndings in your colon, no diverticulosis or other signs of a needed lifestyle change. Continue with your healthy eating and lifestyle habits. See you in 3 years.
[2025-04-22 08:35] VITALS: BP 104/63; PULSE 72; RESP 12; TEMPC 36.7; O2SAT 98
--- NOTE | 2025-04-22 08:37 | W.COLOREPORT ---
Date of service: 04/22/25 Time of Service: 08:37 Colonoscopy Report Date of procedure: 04/22/25 Pre-op diagnosis general: history of serrated adenoma with atypia Post-op diagnosis procedure note: same Procedure: Colonoscopy Surgeon: Bhavya Rose Anesthesia Type: MAC Estimated blood loss (mL): 0 Pathology: none sent Prep: Miralax/Dulcolax Procedure Description: Informed consent was obtained and the patient was taken to the procedure area. The patient was placed in left lateral decubitus position on the procedure table. Timeout was performed. Anesthesia was induced. A lubricated colonoscope was inserted through the anus and passed to the cecum. The cecum was identified by the ileocecal valve and the appendiceal orifice. The scope was then slowly withdrawn and the colonic and rectal mucosa examined.The scope was retroflexed in the anorectal junction examined. No mass lesion, poyp, inflammatory change, or AVM seen. Grade 1 internal hemorrhoids without complication. Assessment and plan: Normal colonoscopy. No evidence of regrowth of prior polyp or new polyp growth. Next colonoscopy will be due in 3 years.
[2025-04-22 08:57] VITALS: BP 103/73; PULSE 70; RESP 16; TEMP 36.1; O2SAT 100
== END 2025-04-22 09:03 | disposition home or self-care (01) ==
LOC: DSU 06:11 → SUR 06:15
PROVIDERS: Surgery; PCP Nurse Practitioner Family; Visit Provider Surgery
PROC: 0DJD8ZZ Inspection of Lower Intestinal Tract, Via Natural or Artificial Opening Endoscopic (ICD-10-PCS; CPT 45378; principal; 2025-04-22 07:30)
DX: Z12.11 Encounter for screening for malignant neoplasm of colon (principal); Z86.0101 Personal history of adenomatous and serrated colon polyps; K64.0 First degree hemorrhoids
CPT/HCPCS: 45378; J2003; J2405; J2704